=== PATIENT | female | born 1935 | race Caucasian/White ===

== ENCOUNTER → 2016-07-07 | Outpatient (CLI) | payer MEDICARE, OTHER ==
[~2016-07-07] MED LIST: ATOR20TA18 PO; CALC-348 PO; CHOL200047 PO; CIPR-151 PO; CIPR-212 PO; METR-116 PO; METR500T PO; TRIA1TAB10 PO; [UNRECOGNIZED DRUG - CODE] PO
== END ==
LOC: WC.BC 08:10
DX: Z12.31 Encounter for screening mammogram for malignant neoplasm of breast (principal); Z80.3 Family history of malignant neoplasm of breast
CPT/HCPCS: 77063; G0202